=== PATIENT | female | born 1955 | race American Indian/Alaskan Native ===

== ENCOUNTER 2018-07-25 10:30 | Emergency (ER) | payer OTHER ==
[2018-07-25 10:44] VITALS: BMI 22.8
[2018-07-25 10:49] VITALS: RESP 18; O2SAT 98
[2018-07-25 11:17] LABS: URINE BILIRUBIN NEGATIVE (NEGATIVE); URINE BLOOD 1+ (NEGATIVE); URINE CLARITY Clear (Clear); URINE COLOR Yellow (YELLOW); URINE GLUCOSE (UA) NORMAL (Normal); URINE LEUKOCYTE ESTERASE TRACE Leu/uL (Negative); URINE PROTEIN NEGATIVE (NEGATIVE); URINE UROBILINOGEN NORMAL mg/dL (0.2-1.0)
--- NOTE | 2018-07-25 11:21 | C.PDOC ---
History Of Present Illness CC: "Soft round object out of my vagina" Patient is a 62 year old menopausal female, with history of kidney stones, who presents to the ED as per request by her PMD for complaints of soft round object out of her vagina". As per patient, she noted this approximately 2 months ago with worsening symptoms. Patient admits to increase urination over the course of 2 months and symptoms is more significant with ambulation but denies urinary incontinence, abnormal vaginal bleeding, discharge or leakage of fluid. In addition, patient denies fever, chills, nausea, vomiting, fibroids, ovarian cyst and STDs. Last sexual intercourse was approximately > 7 years. (Quyen Lorenzo) History Per: Patient History/Exam Limitations: no limitations Onset/Duration Of Symptoms: Days, Gradual, Persistent Current Symptoms Are (Timing): Still Present Severity: None Pain Scale Rating Of: 0 Additional History Per: Patient Time Seen by Provider: 07/25/18 10:49 Chief Complaint (Nursing): Female Genitourinary Past Medical History - Medical History PMH: Kidney Stones Surgical History: No Surg Hx Family History: States: Other Other Family History: Younger sister: Breast Cancer - Social History Hx Tobacco Use: No Hx Alcohol Use: No Hx Substance Use: No - Immunization History Hx Tetanus Toxoid Vaccination: No Hx Influenza Vaccination: No Hx Pneumococcal Vaccination: No Vital Signs: Last Vital Signs Temp 99.1 F 07/25/18 11:44 Pulse 62 07/25/18 11:44 Resp 18 07/25/18 11:44 BP 160/99 H 07/25/18 11:44 Pulse Ox 98 07/25/18 11:44 Review Of Systems Constitutional: Negative for: Fever, Chills, Weakness Eyes: Negative for: Pain, Vision Change, Eyelid Inflammation, Redness ENT: Negative for: Ear Pain, Ear Discharge, Nose Congestion, Mouth Pain Cardiovascular: Negative for: Chest Pain, Palpitations, Orthopnea Respiratory: Negative for: Cough, Shortness of Breath Gastrointestinal: Negative for: Nausea, Vomiting, Abdominal Pain, Constipation, Melena Genitourinary: Positive for: Frequency. Negative for: Dysuria, Incontinence, Hematuria, Vaginal Discharge, Vaginal Bleeding, Pelvic Pain Neurological: Negative for: Weakness, Numbness Physical Exam - Physical Exam Appears: Well, No Acute Distress Skin: Normal Color, Warm Head: Atraumatic, Normacephalic Eye(s): bilateral: Normal Inspection, PERRL, EOMI Ear(s): Bilateral: Normal Nose: Normal Oral Mucosa: Moist Neck: Normal, Normal ROM Chest: Symmetrical, Deformity Cardiovascular: Rhythm Regular Respiratory: Normal Breath Sounds, No Decreased Breath Sounds, No Accessory Muscle Use, No Rales, No Rhonchi Gastrointestinal/Abdominal: Normal Exam, Bowel Sounds, Soft, No Tenderness, No Organomegaly, No Mass Pelvic: Normal External Exam, Normal Speculum Exam, Normal Bimanual Exam, No Vaginal Bleeding, No Vaginal Discharge, No Cervical Motion Tenderness, No Cervix Open, No Adnexal Tenderness, No Mass, No Tender Uterus Extremity: Normal ROM, Tenderness, No Pedal Edema, No Calf Tenderness, No Capillary Refill Extremity: Bilateral: Atraumatic Neurological/Psych: Oriented x3, Normal Speech, Normal Cognition, Normal Cranial Nerves ED Course And Treatment O2 Sat by Pulse Oximetry: 98 Medical Decision Making Medical Decision Making: Patient's pelvic exam WNL - no uterine or bladder prolapse, no CMT, no vaginal bleeding or discharge, no adnexal TTP, labia WNL without Bartholin's. Suspect prolapse based on patient's complaints. Patient instructed to follow up with OB /FINANCIAL PROCESSING CLERK at [place] or [facility] in 1-2 days. She understands she should return to ED if symptoms worsen. (Zari Morales) Disposition Discussed With : Zari Morales - Disposition Disposition Time: 11:35 - Disposition Referrals: Fito Glass MD [Medical Doctor] - [facility] [Outside] Disposition: HOME/ ROUTINE Condition: STABLE Additional Instructions: Please discharge patient home Please follow with Grants Analyst, Dr. Galloway or at [facility] in 1- 2 days for questionable and symptoms of uterine prolapse with a normal speculum examination and please obtain mammogram script Please continue to follow up with your PMD regularly and for colonoscopy script Please continue to hydrate Please take care Instructions: Pelvic Floor Dysfunction (DC), Pelvic Organ Prolapse Forms: [facility] (Arabic), General Discharge Instructions - Clinical Impression Clinical Impression: Prolapse of uterus
[2018-07-25 11:45] VITALS: BP 160/99; PULSE 62; TEMP 99.1
== END 2018-07-25 11:48 | disposition home or self-care (01) ==
LOC: C.ER 10:30
DX: N81.4 Uterovaginal prolapse, unspecified (principal)

== ENCOUNTER 2018-09-11 13:00 | Emergency (ER) | payer OTHER ==
[2018-09-11 13:00] VITALS: BMI 22.8
[2018-09-11 13:24] VITALS: BP 170/100; PULSE 69; RESP 10; TEMP 99.1; O2SAT 98
[2018-09-11 14:46] LABS: URINE BACTERIA RARE (<OCC); URINE BILIRUBIN NEGATIVE (NEGATIVE); URINE BLOOD 1+ (NEGATIVE); URINE CLARITY Clear (Clear); URINE COLOR Yellow (YELLOW); URINE GLUCOSE (UA) NORMAL (Normal); URINE LEUKOCYTE ESTERASE TRACE Leu/uL (Negative); URINE PROTEIN NEGATIVE (NEGATIVE); URINE UROBILINOGEN NORMAL mg/dL (0.2-1.0)
--- NOTE | 2018-09-11 14:58 | C.PDOC ---
History Of Present Illness 62 y/o menopausal female, , w/ PMhx of kidney stones, presents to the ER complaining of vaginal mass which has been present for the past 3.5 months. Patient describes the mass as soft and non-tender. Patient reports that the mass is noticeable when she is standing or walking. Patient was seen for same complaint in [facility] ER on 07/25/18. At the time, she was diagnosed with pelvic organ prolapse and instructed to follow up with CUSTOMER MANAGER. She notes that she has an appointment with her CUSTOMER MANAGER on 09/18/18. She decided to visit the ER today because the mass has become more noticeable and she is worried. She has associated dysuria and urinary frequency. Denies having fever, chills, nausea, vomiting, abdominal pain, back pain, hematuria, vaginal bleeding, and vaginal discharge. Chief Complaint (Nursing): Female Genitourinary History Per: Patient History/Exam Limitations: no limitations Onset/Duration Of Symptoms: Days Current Symptoms Are (Timing): Still Present Severity: Moderate Past Medical History Reviewed: Historical Data, Nursing Documentation, Vital Signs Vital Signs: Last Vital Signs Temp 99.1 F 09/11/18 13:21 Pulse 69 09/11/18 13:21 Resp 10 L 09/11/18 13:21 BP 170/100 H 09/11/18 13:21 Pulse Ox 98 09/11/18 13:21 - Medical History PMH: Kidney Stones Surgical History: No Surg Hx Family History: States: No Known Family Hx - Social History Hx Tobacco Use: No Hx Alcohol Use: No Hx Substance Use: No - Immunization History Hx Tetanus Toxoid Vaccination: No Hx Influenza Vaccination: No Hx Pneumococcal Vaccination: No Review Of Systems Except As Marked, All Systems Reviewed And Found Negative. Constitutional: Negative for: Fever, Chills Cardiovascular: Negative for: Chest Pain, Palpitations Respiratory: Negative for: Cough, Shortness of Breath Gastrointestinal: Negative for: Nausea, Vomiting, Abdominal Pain Genitourinary: Positive for: Dysuria, Frequency, Other (vaginal mass). Negative for: Incontinence, Hematuria, Vaginal Discharge, Vaginal Bleeding, Pelvic Pain Musculoskeletal: Negative for: Neck Pain, Shoulder Pain, Arm Pain, Back Pain, Hand Pain, Leg Pain, Foot Pain Skin: Negative for: Rash, Lesions, Bruising Neurological: Negative for: Weakness, Numbness, Headache, Dizziness Physical Exam - Physical Exam Appears: Non-toxic, No Acute Distress Skin: Normal Color, Warm, Dry Head: Atraumatic, Normacephalic Eye(s): bilateral: Normal Inspection Nose: Normal Oral Mucosa: Moist Tongue: Normal Appearing Lips: Normal Appearing Neck: Normal, Normal ROM, Supple Lymphatic: Normal Exam Chest: Symmetrical Cardiovascular: Rhythm Regular Respiratory: Normal Breath Sounds, No Rales, No Rhonchi, No Wheezing Gastrointestinal/Abdominal: Normal Exam, Soft, No Tenderness, No Guarding, No Rebound Rectal: Deferred Back: Normal Inspection, No Vertebral Tenderness, No Paraspinal Tenderness Pelvic: Normal External Exam, No Normal Speculum Exam, No Normal Bimanual Exam, No Vaginal Bleeding, No Vaginal Discharge, No Cervical Motion Tenderness, No Cervix Open, No Adnexal Tenderness, Mass (visible palpable soft mass at vaginal introitus; soft mass palpable on bimanual, non tender), No Tender Uterus Extremity: Normal ROM Neurological/Psych: Oriented x3, Normal Speech, Normal Cognition, Normal Cranial Nerves, Normal Motor, Normal Sensation ED Course And Treatment O2 Sat by Pulse Oximetry: 98 (RA) Pulse Ox Interpretation: Normal Medical Decision Making Medical Decision Making: Initial Plan: --UA --Urine Culture UA shows UTI (blood, leuk esterase), will culture Pt reassured about benign nature of organ prolapse and necessity of OBGYN followup. Impression: Pelvic Organ Prolapse, UTI Plan: Patient has been discharged. Patient has been prescribed Macrobid 100 mg BID 7 days and instructed to follow up with CUSTOMER MANAGER as scheduled. Disposition - Disposition Disposition: HOME/ ROUTINE Disposition Time: 15:07 Condition: IMPROVED Additional Instructions: Take macrobid every 12 hours for 7 days Followup with OBGYN as scheduled Return to ED if symptoms worsen Prescriptions: Nitrofurantoin Macrocrystals [Macrobid] 100 mg PO Q12H 7 Days #14 cap Instructions: Pelvic Floor Dysfunction, Pelvic Organ Prolapse Forms: [facility] (Kenyan) - Clinical Impression Clinical Impression: Prolapse of female pelvic organs, UTI (urinary tract infection) - PA / CUSTOMER ENGAGEMENT SPECIALIST / Resident Statement MD/DO has reviewed & agrees with the documentation as recorded. - Scribe Statement The provider has reviewed the documentation as recorded by the Lenny Jean Provider Attestation All medical record entries made by the Rafaelibjason were at my direction and personally dictated by me. I have reviewed the chart and agree that the record accurately reflects my personal performance of the history, physical exam, medical decision making, and the department course for this patient. I have also personally directed, reviewed, and agree with the discharge instructions and disposition.
== END 2018-09-11 15:18 | disposition home or self-care (01) ==
LOC: C.ER 13:00
DX: N81.89 Other female genital prolapse (principal); N39.0 Urinary tract infection, site not specified